=== PATIENT | female | born 1990 | race Caucasian/White ===

== ENCOUNTER 2025-02-08 01:57 | Inpatient (IN) | payer OTHER ==
[2025-02-08] VITALS (12 sets, daily range): BP systolic 111–161; BP diastolic 67–79; PULSE 56–107; RESP 12–20; TEMP 98–98.4; O2SAT 90–98
[~2025-02-08] VITALS: Ht 165.1 cm; Wt 88.0 kg
--- NOTE | 2025-02-08 02:58 | ED.PDOC ---
History of Present Illness HPI Comments 34-year-old female JESSIE presents with a chief complaint of RUQ abdominal pain that radiates to the side and back with N/V for the past 2 hours. BP: 83/52. Denies any PMHx. 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 Past Medical History PAST MEDICAL HISTORY: Denies Surgical History: Denies all surgeries INVAS TECH History: Denies all INVAS TECH Hx Family History Family History: Reviewed,noncontributory to illness Social History Smoker: Non-Smoker Alcohol: Denies ETOH Use Drugs: Denies Drug Use Lives In: Home Constitutional: denies: chills, diaphoresis, fatigue, fever, malaise, sweats, weakness, others EENTM: denies: blurred vision, double vision, ear bleeding, ear discharge, ear drainage, ear pain, ear ringing, eye pain, eye redness, hearing loss, mouth pain, mouth swelling, nasal discharge, nose bleeding, nose congestion, nose pain, photophobia, tearing, throat pain, throat swelling, voice changes, others Respiratory: denies: cough, hemoptysis, orthopnea, SOB at rest, shortness of breath, SOB with excertion, stridor, wheezing, others Cardiovascular: denies: chest pain, dizzy spells, diaphoresis, Dyspnea on exertion, edema, irregular heart beat, left arm pain, lightheadedness, palpitations, PND, syncope, others Gastrointestinal: reports: abdominal pain, nausea, vomiting; denies: abdomen distended, blood streaked bowels, constipated, diarrhea, dysphagia, difficulty swallowing, hematemesis, melena, poor appetite, poor fluid intake, rectal bleeding, rectal pain, others Genitourinary: denies: abnormal vagina bleeding, burning, dyspareunia, dysuria, flank pain, frequency, hematuria, incontinence, pain, , vagina discharge, urgency, others Neurological: denies: dizziness, fainting, headache, left sided numbness, left sided weakness, numbness, paresthesia, pre-existing deficit, right sided numbness, right sided weakness, seizure, speech problems, tingling, tremors, weakness, others Musculoskeletal: denies: back pain, gout, joint pain, joint swelling, muscle pain, muscle stiffness, neck pain, others Integumetry: denies: bruises, change in color, change in hair/nails, dryness, laceration, lesions, lumps, rash, wounds, others Allergic/Immunocompromised: denies: Difficulty Healing, Frequent Infections, Hives, Itching, others Hematologic/Lymphatic: denies: anemia, blood clots, easy bleeding, easy bruising, swollen glands, others Endocrine: denies: excessive hunger, excessive sweating, excessive thirst, excessive urination, flushing, intolerance to cold, intolerance to heat, unexplained weight gain, unexplained weight loss, others Psychiatric: denies: anxiety, bipolar disorder, depression, hopeless, panic disorder, schizophrenia, sleepless, suicidal, others All Other Systems: Reviewed and Negative Physical Exam General Appearance: No Apparent Distress, Normal HEENT: Normal ENT Inspection, Pharynx Normal, TMs Normal Neck: Full Range of Motion, Non-Tender, Normal, Normal Inspection Respiratory: Chest Non-Tender, Lungs Clear, No Accessory Muscle Use, No Respiratory Distress, Normal Breath Sounds Cardiovascular: No Edema, No JVD, No Murmur, No Gallop, Normal Peripheral Pulses, Regular Rate/Rhythm Breast Exam: Deferred Gastrointestinal: No Organomegaly, No Pulsatile Mass, Normal Bowel Sounds, RUQ, Soft, Tenderness Genitalia: Deferred Pelvic: Deferred Rectal: Deferred Extremities: No calf tenderness, Normal capillary refill, Normal inspection, Normal range of motion, Non-tender, No pedal edema Musculoskeletal : Apperance: Normal 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 Was a procedure done?: No Differential Dx Considerations may include: Cholecystitis, diverticulitis, pancreatitis, acute appendicitis, gastroenteritis X-Ray, Labs, Meds, VS Vital Signs Date Time Temp Pulse Resp B/P (MAP) Pulse Ox O2 Delivery O2 Flow Rate FiO2 02/08/25 02:35 98.6 56 10 106/59 (75) 96 98.6 02/08/25 02:35 56 12 97 Room Air* 0 21 02/08/25 02:08 98.6 84 16 83/52 (62) 96 98.6 Lab Test 02/08/25 02:57 Range/Units White Blood Count 13.2 H 4.4-10.8 10^3/uL Red Blood Count 4.48 4.0-5.20 10^6/uL Hemoglobin 11.2 L 12.2-16.2 g/dL Hematocrit 34.0 L 36.0-46.0 % Mean Corpuscular Volume 75.8 L 80.0-100.0 fL Mean Corpuscular Hemoglobin 25.0 L 28.0-32.0 pg Mean Corpuscular Hemoglobin Concent 32.9 32.0-36.0 g/dL Red Cell Distribution Width 15.7 H 11.8-14.3 % Platelet Count 354 140-450 10^3/uL Mean Platelet Volume 8.0 6.9-10.8 fL Neutrophils (%) (Auto) 81.7 H 37.0-80.0 % Lymphocytes (%) (Auto) 14.0 10.0-50.0 % Monocytes (%) (Auto) 3.5 0.0-12.0 % Eosinophils (%) (Auto) 0.6 0.0-7.0 % Basophils (%) (Auto) 0.2 0.0-2.0 % Neutrophils # (Auto) 10.8 H 1.6-8.6 10 ^3/uL Lymphocytes # (Auto) 1.8 0.4-5.4 10 ^3/uL Monocytes # (Auto) 0.5 0-1.3 10 ^3/uL Eosinophils # (Auto) 0.1 0-0.8 10 ^3/uL Basophils # (Auto) 0 0-0.2 10 ^3/uL Nucleated Red Blood Cells 0.0 % Sodium Level 140 136-145 mmol/L Potassium Level 4.3 3.5-5.1 mmol/L Chloride Level 107 98-107 mmol/L Carbon Dioxide Level 26 20-31 mmol/L Anion Gap 7 5-15 Blood Urea Nitrogen 14 9-23 mg/dL Creatinine 0.82 0.550-1.02 mg/dL Glomerular Filtration Rate Calc 96 >90 mL/min BUN/Creatinine Ratio 17.1 10.0-20.0 Serum Glucose 142 H 74-106 mg/dL Lactic Acid Level 1.8 0.4-2.0 mmol/L Calcium Level 9.1 8.7-10.4 mg/dL Total Bilirubin 0.2 0.2-1.0 mg/dL Aspartate Amino Transferase (AST) 53 H 13-40 U/L Alanine Aminotransferase (ALT) 40 7-40 U/L Alkaline Phosphatase 77 46-116 U/L Total Protein 7.3 5.7-8.2 g/dL Albumin 4.1 3.2-4.8 g/dL Lipase 306 H 12-53 U/L Time of 1ST Reevaluation: 03:17 Reevaluation 1ST: Unchanged Patient Education/Counseling: Diagnosis, Treatment Family Education/Counseling: No Family Present Departure 1 Departure Time of Disposition: 04:25 (Patient presented with abdominal pain that was concerning for possible appendicits, gastritis, cholecystitis, colitis, gastroenteritis, sbo, or orther possible surgical emergency. Data: 1. I ordered and reviewed the result of at least 3 labs including a CBC, BMP, and Urinalysis. 2. I independently interpreted the following tests: CT Abdoment and Pelvis is co ncerning for benign abdomen .Risk:This patient has a high risk of morbidity due to further diagnostic testing or treatment and may suffer from an acute abdominal process disorder. Workup reveals pancreatitis and patient should be admitted for further workup. and possible expert consultation. ) Impression: Primary Impression: Acute pancreatitis Qualified Codes: K85.90 - Acute pancreatitis without necrosis or infection, unspecified Additional Impression: Intractable abdominal pain Disposition: ADMITTED INPATIENT Admit to: Med Surg Condition: Serious Critical Care Note Critical Care Time?: Yes Critical care comment: Intractable abdominal pain Authorized and Performed by: Alexa Ch MD Total critical care time: Approximately 37 minutes Due to a high probability of clinically significant, life threatening deterioration, the patient required my highest level of preparedness to intervene emergently and I personally spent this critical care time directly and personally managing the patient. This critical care time included obtaining a history; examining the patient; pulse oximetry; ordering and review of studies; arranging urgent treatment with development of a management plan; evaluation of patient's response to treatment; frequent reassessment; and, discussions with other providers. This critical care time was performed to assess and manage the high probability of imminent, life-threatening deterioration that could result in multi-organ failure. It was exclusive of separately billable procedures and treating other patients and teaching time. Please see my other sections and the rest of the note for further information on patient assessment and treatment. Stability Stability form required: No Heart Score Heart Score: Heart Score Response (Comments) Value History N/A 0 EKG N/A 0 Age N/A 0 Risk Factors N/A 0 Troponin N/A 0 Total 0 I personally scribed for ALEXA CH MD ([email or web address]) on 02/08/25 at 02:58. Electronically submitted by Gerson Hackett ([email or web address]). ALEXA CH MD Feb 08, 2025 02:58
[2025-02-08 03:20] LABS: Basophils # (auto) 0 10 ^3/uL (0-0.2); Basophils % (auto) 0.2 % (0.0-2.0); Eosinophils # (auto) 0.1 10 ^3/uL (0-0.8); Hemoglobin 11.2 g/dL (12.2-16.2); Lymphocytes # (auto) 1.8 10 ^3/uL (0.4-5.4); Monocytes # (auto) 0.5 10 ^3/uL (0-1.3); Monocytes % (auto) 3.5 % (0.0-12.0)
[2025-02-08 03:21] LABS: Eosinophils % (auto) 0.6 % (0.0-7.0); Mean Corpuscular Hgb Conc. 32.9 g/dL (32.0-36.0); Mean Corpuscular Volume 75.8 fL (80.0-100.0); Neutrophils # (auto) 10.8 10 ^3/uL (1.6-8.6); Neutrophils % (auto) 81.7 % (37.0-80.0); Platelet Count (auto) 354 10^3/uL (140-450); Red Blood Cells 4.48 10^6/uL (4.0-5.20); Red Cell Distribution Width 15.7 % (11.8-14.3); White Blood Cell 13.2 10^3/uL (4.4-10.8)
[2025-02-08 03:29] LABS: Alanine Aminotransferase 40 U/L (7-40); Albumin 4.1 g/dL (3.2-4.8); Alkaline Phosphatase 77 U/L (46-116); Anion Gap 7 (5-15); BUN/Creatinine Ratio 17.1 (10.0-20.0); Blood Urea Nitrogen 14 mg/dL (9-23); Calcium 9.1 mg/dL (8.7-10.4); Carbon Dioxide 26 mmol/L (20-31); Chloride 107 mmol/L (98-107); Potassium 4.3 mmol/L (3.5-5.1); Sodium 140 mmol/L (136-145); Total Protein 7.3 g/dL (5.7-8.2)
[2025-02-08] MEDS: IOHEXOL 300 MG/ML 100ML BOTTLE IJ ONE (03:35)
[2025-02-08 03:49] LABS: Aspartate Aminotransferase 53 U/L (13-40); Bilirubin, Total 0.2 mg/dL (0.2-1.0); Glucose 142 mg/dL (74-106); Lipase 306 U/L (12-53)
--- NOTE | 2025-02-08 04:21 | DVH ---
Exam: CT CT AB PEL WITH IV CON ONLY History: RUQ abdominal pain Comparison Study: None available at time of dictation. TECHNIQUE: Multidetector CT of the abdomen and pelvis was performed from lung bases to ischial tubero sities. Imaging was performed without IV contrast using axial images. Coronal and sagittal reformats were obtained from the axial data set by the technologist. Radiation Dose Information: CT Dose: CTDI volume is 21.5 mGy. Dose-length product is 1387.6 mGy*cm FINDINGS: Evaluation of solid organs is limited due to lack of intravenous contrast use. Findings: Lung Bases: No acute or significant lung base finding. Normal heart size. No pleural or pericardial effusion. Liver: The liver is normal in size. No focal lesions. Gallbladder and Biliary Tree: Unremarkable Spleen: Unremarkable Pancreas: The pancreas is grossly normal in appearance. Adrenal Glands: Unremarkable Kidneys: Kidneys are grossly normal without calculi or hydronephrosis. GI Tract: The stomach is grossly normal in appearance. Small bowel and colon are normal in caliber an d distribution. The appendix is not visualized; however, no secondary findings of acute appendicitis identified. Peritoneal cavity: No pneumoperitoneum. No ascites. Lymphadenopathy: No mesenteric, retroperitoneal or periportal lymphadenopathy. Abdominal Wall and Mesentery: Unremarkable. Vasculature: The visualized abdominal aorta is normal in size and caliber. Evaluation of abdominal a nd pelvic vessels is limited due to lack of intravenous contrast. Pelvic Organs: Unremarkable Urinary Bladder: Grossly unremarkable for degree of distention. Musculoskeletal: No aggressive focal bony lesions, acute fractures or dislocation. Soft tissues: Unremarkable IMPRESSION: 1. No acute abdominal or pelvic finding. Radiation optimization: All CT scans at this facility use at least one of these dose optimization zach hniques: automated exposure control mA and/or kV adjustment per patient size (includes targeted exam s where dose is matched to clinical indication) or iterative reconstruction.
[2025-02-08 04:36] LABS: Urine Bacteria FEW /hpf (None Seen); Urine Blood 1+ /uL (Negative); Urine Clarity Clear (Clear); Urine Color Light-Yellow (Yellow); Urine Protein, UAD TRACE (Negative); Urine Specific Gravity > 1.050 (1.001-1.035); Urine Squamous Epithelial Cell FEW /hpf (<5); Urine Urobilinogen Normal (Negative); Urine WBC 2 /HPF (0-5)
--- NOTE | 2025-02-08 04:57 | DVHHPRES ---
History of Present Illness Resident Creating Document: PAM GAN History of Present Illness Vivi Ge this is a 34-year-old female patient who presents to the ED with chief complaint of epigastric abdominal pain which radiates towards right upper quadrant and towards back, intensity 10/10 which lasted approximately 1 hour associated with nausea and vomiting, followed by episodes of loss of consciousness which lasted approximately 1 hour, she was foggy and confused and presented bilateral arm tremors and diaphoresis. Per patient these symptoms have been happening for the past two months, she had a total of three episodes but never consulted until today after calling the EMS. Denies palpitation, chest pain, dyspnea, diarrhea, constipation, dysuria, bleeding, recent travel, sick contacts, triggering factors, unintentional weight loss and motor or sensory deficits. 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 control consist of vasectomy in her and bilateral fallopian tube resection. Last menstrual period was on February 01, 2025, she just finished her period, her cycles normally last 28 days. Family history: Denies Social history: Lives with family in [place] ( is next of kin). Denies current tobacco, alcohol and other drug abuse Allergies: Denies Home medication: Denies Patient seen and examined at bedside. Currently has no new complaint. She is alert and oriented in four spheres. Presented pain while palpating right upper quadrant (positive Thompson's sign). Past Medical History Per HPI Past Surgical History Per HPI Family History Per HPI Past Social History Per HPI Review of Systems Review of Systems Per HPI Allergies: Coded Allergies: NO KNOWN ALLERGIES (Unverified , 02/08/25) Exam Vital Signs Vital Signs Date Time Temp Pulse Resp B/P (MAP) Pulse Ox O2 Delivery O2 Flow Rate FiO2 02/08/25 02:35 98.6 56 10 106/59 (75) 96 98.6 02/08/25 02:35 Room Air* 0 21 Exam Patient lying in bed, in no acute distress General: Lucid, afebrile, mucosae are moist Cardiovascular: Normal S1 and S2. No murmurs, gallops or rubs Respiratory: Normal ventilation mechanics. Clear lung sounds on auscultation Abdomen: Soft, positive Thompson's sign, rest of abdomen nontender, no organomegaly, normal bowel sounds MSK/skin: Mobilizes 4 limbs. Skin is dry and warm Neurological: Oriented in 3 spheres. No motor no sensitive deficits. Pupils are isocoric and reactive Labs/Xrays Labs Test 02/08/25 04:20 02/08/25 02:57 Range/Units Urine Color Light-yellow Yellow Urine Clarity Clear Clear Urine pH 8.0 5.0-9.0 Urine Specific [place] > 1.050 H 1.001-1.035 Urine Protein Trace H Negative Urine Ketones Negative Negative Urine Blood 1+ H Negative /uL Urine Nitrite Negative Negative Urine Bilirubin Negative Negative Urine Urobilinogen Normal Negative mg/dL Urine Leukocyte Esterase Negative Negative /uL Urine RBC 4 0 - 4 /hpf Urine Microscopic WBC 2 0-5 /HPF Urine Squamous Epithelial Cells Few <5 /hpf Urine Bacteria Few H None Seen /hpf Urine Glucose Normal Normal mg/dL White Blood Count 13.2 H 4.4-10.8 10^3/uL Red Blood Count 4.48 4.0-5.20 10^6/uL Hemoglobin 11.2 L 12.2-16.2 g/dL Hematocrit 34.0 L 36.0-46.0 % Mean Corpuscular Volume 75.8 L 80.0-100.0 fL Mean Corpuscular Hemoglobin 25.0 L 28.0-32.0 pg Mean Corpuscular Hemoglobin Concent 32.9 32.0-36.0 g/dL Red Cell Distribution Width 15.7 H 11.8-14.3 % Platelet Count 354 140-450 10^3/uL Mean Platelet Volume 8.0 6.9-10.8 fL Neutrophils (%) (Auto) 81.7 H 37.0-80.0 % Lymphocytes (%) (Auto) 14.0 10.0-50.0 % Monocytes (%) (Auto) 3.5 0.0-12.0 % Eosinophils (%) (Auto) 0.6 0.0-7.0 % Basophils (%) (Auto) 0.2 0.0-2.0 % Neutrophils # (Auto) 10.8 H 1.6-8.6 10 ^3/uL Lymphocytes # (Auto) 1.8 0.4-5.4 10 ^3/uL Monocytes # (Auto) 0.5 0-1.3 10 ^3/uL Eosinophils # (Auto) 0.1 0-0.8 10 ^3/uL Basophils # (Auto) 0 0-0.2 10 ^3/uL Nucleated Red Blood Cells 0.0 % Sodium Level 140 136-145 mmol/L Potassium Level 4.3 3.5-5.1 mmol/L Chloride Level 107 98-107 mmol/L Carbon Dioxide Level 26 20-31 mmol/L Anion Gap 7 5-15 Blood Urea Nitrogen 14 9-23 mg/dL Creatinine 0.82 0.550-1.02 mg/dL Glomerular Filtration Rate Calc 96 >90 mL/min BUN/Creatinine Ratio 17.1 10.0-20.0 Serum Glucose 142 H 74-106 mg/dL Lactic Acid Level 1.8 0.4-2.0 mmol/L Calcium Level 9.1 8.7-10.4 mg/dL Total Bilirubin 0.2 0.2-1.0 mg/dL Aspartate Amino Transferase (AST) 53 H 13-40 U/L Alanine Aminotransferase (ALT) 40 7-40 U/L Alkaline Phosphatase 77 46-116 U/L Total Protein 7.3 5.7-8.2 g/dL Albumin 4.1 3.2-4.8 g/dL Lipase 306 H 12-53 U/L Assessment/Plan Assessment/Plan Assessment: Sepsis probably secondary to pancreatitis versus cholecystitis Pancreatitis Rule out cholecystitis Questionable UTI Rule out syncope versus seizure disorder Plan: Obtain abdomen and pelvis CT which showed no intra abdominal abnormalities. Due to positive Thompson's sign on examination, ordered abdominal ultrasound. Increased lipase (306). Recommend bowel rest, and IV fluids at this point. Currently under empiric IV antibiotic (ceftriaxone and metronidazole). Covering probable UTI and questionable cholecystitis. Complete workup for syncope versus seizure disorder. Ordered head CT, echocardiogram, carotid duplex and orthostatic vital signs. Ordered panculture (blood and urine culture) Consulted Neurology Goals of care discussed with patient for over 18 minutes: Full code status Discussed plan with Dr. Tipton, patient and nurses: Currently on bowel rest (NPO), IV fluids, empiric IV antibiotic. Ordered complementary workup to rule out cholecystitis, syncope and seizure disorder. Plan discussed with: Patient, Daughter, Other (Nurses) Date of Service: Feb 08, 2025 Billing Provider: MURALI TIPTON MD Common Visit Codes: [id number]-[id number] INP/OBS CARE (HIGH) PAM GAN RESIDENT Feb 08, 2025 04:57
[2025-02-08] MEDS: PANTOPRAZOLE 40 MG/10 ML VIAL INJ IV ONE (05:00)
[2025-02-08] MEDS ORDERED: MORPHINE SULFATE INJ 2 MG/ml SYRG IV PRN (05:00)
[2025-02-08] MEDS ORDERED: ONDANSETRON HCL 4 MG/2 ML VIAL IV PRN (05:00)
[2025-02-08] MEDS: SODIUM CHLORIDE 0.9% 1,000 ML IV ONE ×2 (05:00)
[2025-02-08 05:43] LABS: Amphetamine Screen, Urine Neg (NEGATIVE); Barbiturate Scree,Urine Neg (NEGATIVE); Benzodiazephine Screen, Urine Neg (NEGATIVE); Cannabinoid Screen, Urine Neg (NEGATIVE); Cocaine Screen, Urine Neg (NEGATIVE); Opiate Scree,Urine Neg (NEGATIVE); Phencyclidine Screen, Urine Neg (NEGATIVE)
[2025-02-08 05:51] LABS: INR 0.97 (0.9-1.15); Partial Thromboplastin Time 24.2 SEC (24.5-34.5); Prothrombin Time 10.3 sec (9.3-11.8)
[2025-02-08] MEDS: SODIUM CHLORIDE 0.9% 1,000 ML IV SCH ×2 (06:00→16:21)
[2025-02-08 06:04] LABS: Magnesium 1.9 mg/dL (1.6-2.6)
[2025-02-08 06:06] LABS: Phosphorus 4.1 mg/dL (2.4-5.1)
--- NOTE | 2025-02-08 06:15 | DVH ---
EXAM: CT HEAD WITHOUT CONTRAST INDICATION: Questionable seizures TECHNIQUE: CT of the head without intravenous contrast. Coronal and sagittal reformatted images are s ubmitted. Radiation Dose : 1. Head: CT Dose: CTDI volume is 57.22 mGy. Dose-length product is 802.73 mGy*cm The dose indicators for CT are the volume Computed Tomography (CT) Dose Index (CTDIvol) and the Dose Length Product (DLP), and are measured in units of mGy and mGy-cm, respectively. These indicators are not patient dose, but values generated from the CT scanner acquisition factors. The report includes radiation exposure data for exposures received during this examination. All CT scans at this medical facility are performed using dose modulation techniques as appropriate to a performed exam including the following: Automated exposure control was utilized; adjustment of the MA and/or KV according to patient size; and use of iterative reconstruction technique. COMPARISON: None FINDINGS: There is no evidence of acute intracranial hemorrhage, extra-axial collection, mass effect, midline s hift, herniation or hydrocephalus. The ventricles, sulci and cisterns are age appropriate. The rene-white differentiation is intact. Opacification of the ethmoid air cells. Mastoid air cells are clear. No depressed calvarial fracture. The surrounding soft tissues are unremarkable. IMPRESSION: 1. No acute intracranial abnormality.
[2025-02-08] MEDS: cefTRIAXone 1GM/50ML D5W 50 ML IV ONE (08:38)
[2025-02-08 08:44] LABS: Basophils # (auto) 0 10 ^3/uL (0-0.2); Basophils % (auto) 0.3 % (0.0-2.0); Eosinophils # (auto) 0 10 ^3/uL (0-0.8); Hemoglobin 11.4 g/dL (12.2-16.2); Mean Corpuscular Hemoglobin 24.9 pg (28.0-32.0); Monocytes # (auto) 0.4 10 ^3/uL (0-1.3); White Blood Cell 9.2 10^3/uL (4.4-10.8)
[2025-02-08 08:46] LABS: Eosinophils % (auto) 0.2 % (0.0-7.0); Hematocrit 34.8 % (36.0-46.0); Lymphocytes # (auto) 1.7 10 ^3/uL (0.4-5.4); Lymphocytes % (auto) 18.9 % (10.0-50.0); Mean Corpuscular Hgb Conc. 32.8 g/dL (32.0-36.0); Mean Corpuscular Volume 75.7 fL (80.0-100.0); Monocytes % (auto) 4.6 % (0.0-12.0); Nucleated Red Blood Cells % 0.1 %; Platelet Count (auto) 367 10^3/uL (140-450); Red Cell Distribution Width 16.5 % (11.8-14.3)
[2025-02-08] MEDS: ONDANSETRON HCL 4 MG/2 ML VIAL IV ONE (08:48)
[2025-02-08] MEDS: MORPHINE SULFATE 4 MG/ML SYR/VIAL IV ONE (08:48)
--- NOTE | 2025-02-08 08:58 | DVH ---
INDICATION: Rule out cholecystitis TECHNIQUE: Multiple real-time sonographic images of the abdomen were obtained. COMPARISON: None FINDINGS: The liver is heterogenous in echogenicity. The liver measures 16cm. No intrahepatic biliar y ductal dilatation is noted. The gallbladder wall measures 0.3 cm and is unremarkable. Gallstones are noted. The common duct faby ures 0.6 cm and is unremarkable. No pericholecystic fluid is noted. The right kidney measures 12cm. No hydronephrosis. The pancreas is not well visualized due to obscuration from bowel gas. The visualized portions of the IVC and aorta are grossly unremarkable. IMPRESSION: Hepatic steatosis. Cholelithiasis.
--- NOTE | 2025-02-08 08:59 | DVH ---
Carotid Duplex Date: 02/08/2025 07:41 AM Clinical History: Loss of consciousness Comparison: None Technique: Duplex Doppler evaluation of the extracranial carotid and vertebral arteries including col or Doppler and spectral/pulsed waveform analysis was performed. Findings: RIGHT SIDE: The peak systolic velocities are 95 cm/s in the distal CCA and 87 cm/s in the proximal ICA.The ICA/CC A ratio is 0.9. The external carotid artery is patent with peak systolic velocity of 89 cm/s proximally. There is appropriate antegrade flow in the right vertebral artery. LEFT SIDE: The peak systolic velocities are 101 cm/s in the distal CCA and 55cm/s in the proximal ICA. The ICA /CCA ratio is 0.5. The external carotid artery is patent with peak systolic velocity of 89 cm/s proximally. There is appropriate antegrade flow in the left vertebral artery. IMPRESSION: No hemodynamically significant stenosis noted in the right carotid system. No hemodynamically significant stenosis noted in the left carotid system. Reference: Radiology 2003; 229:[id number]
[2025-02-08 09:06] LABS: Albumin 3.9 g/dL (3.2-4.8); Alkaline Phosphatase 83 U/L (46-116); Anion Gap 5 (5-15); BUN/Creatinine Ratio 13.6 (10.0-20.0); Bilirubin, Total 0.3 mg/dL (0.2-1.0); Calcium 9.1 mg/dL (8.7-10.4); Carbon Dioxide 25 mmol/L (20-31); Glucose 90 mg/dL (74-106); Potassium 4.4 mmol/L (3.5-5.1); Sodium 140 mmol/L (136-145); Total Protein 7.3 g/dL (5.7-8.2)
[2025-02-08] MEDS: metroNIDAZOLE 500MG/100ML 100 ML IV ONE (09:07)
--- NOTE | 2025-02-08 09:07 | DVH ---
CHEST RADIOGRAPH Indication: PNA Technique: Single frontal view of the chest was obtained Comparison: None FINDINGS: Lines and Tubes: None Lungs: No focal consolidation. Pleura: No effusion. No pneumothorax. Cardiomediastinal contours: Unremarkable Bones: No acute osseous abnormality. IMPRESSION: No acute cardiopulmonary disease.
[2025-02-08 09:12] LABS: Alanine Aminotransferase 285 U/L (7-40); Aspartate Aminotransferase 378 U/L (13-40); Blood Urea Nitrogen 9 mg/dL (9-23); Chloride 110 mmol/L (98-107)
--- NOTE | 2025-02-08 09:24 | DVHINCON2 ---
Date of service: Feb 08, [address] Yin Reason for Consultation Questionable seizure History of Present Illness Ms. 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 On waking up, she failed confused, but she knew it was a hospital bleeding, and what was happened to her About two weeks ago, one day she remember having intense abdominal pain, but the next memory was waking up having shower, feeling confused, but she knew where she was. Two days after this event, when she was having intense abdominal pain, remember in the bathroom but next memory was in the bed with her with confusion but she recognized person, place and she knew what happened to her on waking up She denies history of seizure disorder, she denies symptoms olfactory hallucination, Barbara vu, she was no history of traumatic brain injury, intracr anial infection, or family history of seizure disorder She has consulted her family doctor I have asked her abdominal pain, but no diagnosis was given UDS, 01/22/2025, negative Plasma alcohol, 02/08/25: 3.4 UDS, 02/08/2025: WBC: 2, urine leukocyte esterase: Negative WBC/HB/PLT/MCV, 02/08/2025: 9.2/11.4/367/75.7 BMP, 02/08/2025: Unremarkable TBI/AST/ALT/AP, 02/08/2025: 0.2/53/40/77, 0.3/378/285/83 Ammonia, 02/08/2025: 36 TG/HDL/LDL/HDL, 02/08/2025: 103/150/105/46 Vitamin B12, 02/08/2025: 612 TSH, 02/08/25: 1.38 Ultrasound, 02/08/2025: Hepatic steatosis. Carotid Doppler, 02/08/2025: No hemodynamically significant stenosis noted in the right carotid system. No hemodynamically significant stenosis noted in the left carotid system CT head, 02/08/2025: No acute intracranial abnormality. Past Medical History No major medical problems Past Surgical History Tubal ligation Family History Diabetes Social History She is not a tobacco smoker, she has no history of alcohol or recreational substance abuse Allergies: Coded Allergies: NO KNOWN ALLERGIES (Unverified , 02/08/25) Current Medications Current Medications Medications (Trade) Dose Ordered Sig/Clifford Route PRN Reason Start Time Stop Time Status Last Admin Acetaminophen (Tylenol Tablet) 650 mg Q6HP PRN PO PAIN SCALE 1-3 OR TEMP>100.4 02/08/25 05:00 Ondansetron HCl (Zofran) 4 mg Q4HP PRN IV NAUSEA / VOMITING 02/08/25 05:00 Morphine Sulfate 2 mg Q4HPRN PRN IV SEVERE PAIN (7-10 PAIN SCALE) 02/08/25 05:00 Enoxaparin Sodium (Lovenox) 40 mg DAILY SC 02/08/25 10:00 Sodium Chloride 1,000 ml @ 100 mls/hr Q10H IV 02/08/25 05:00 02/08/25 06:00 Pantoprazole Sodium (Protonix) 40 mg DAILY IV 02/08/25 10:00 Metronidazole 100 ml @ 100 mls/hr Q8HR IV 02/08/25 14:00 Ceftriaxone Sodium 50 ml @ 100 mls/hr DAILY@09 IV 02/09/25 09:00 Review of Systems As above, the other systems are negative Vital Signs Vital Signs Date Time Temp Pulse Resp B/P (MAP) Pulse Ox O2 Delivery O2 Flow Rate FiO2 02/08/25 08:19 98.2 64 17 105/71 (82) 98 98.2 02/08/25 08:00 Room Air* 0 21 Physical Exam GENERAL EXAM: General: the patient is well developed and nourished. No acute distress. HEENT: Normocephalic, neck is supple, no carotid bruits. No mass. RESPIRATORY: Normal respiratory effort with symmetrical lung expansion. Lungs clear to auscultation. CARDIOVASCULAR: Regular rate and rhythm with no murmurs. S1, S2. ABDOMEN: Soft, nontender, normal bowel sound NEUROLOGICAL: MENTAL STATUS: Awake and alert. Oriented to person, place, time and general circumstances. Able to give personal history. SPEECH, LANGUAGE, HIGHER CORTICAL FUNCTION: no aphasia or dysathria. CRANIAL NERVES: #2: Intact visual guerra to confrontation. The optic discs were sharp. #3,4,6: Pupils are equal, round and reactive. EOMs full and conjugate. No nystagmus. #5: Facial sensation intact in all three divisions bilaterally. Mandibular strength intact. #7: Facial muscles symmetrical and strength intact. #8: Hearing grossly normal to voice. #9,10: Uvula and soft palate rise in the midline. Swallow and voice are normal. #11: Trapezius and sternomastoid strength intact bilaterally. #12: Tongue midline. No fasciculations or atrophy. SENSATION: Sensation to touch and pinprick is normal. MOTOR: Normal tone in the upper and lower extremity. Normal muscle bulk. No fasciculations. No abnormal movements or posturing. Muscle strength of the major groups in the upper extremities is 5/5. Muscle strength of the major groups in the lower extremities is 5/5. REFLEXES: Deep tendon reflexes normal and symmetrical. No pathological reflexes. CEREBELLAR/COORDINATION: Finger to nose and heel to tovar are normal bilaterally. GAIT/STATION: deferred. Labs/Diagnostic Data Labs Test 02/08/25 08:31 02/08/25 05:20 02/08/25 04:20 02/08/25 02:57 Range/Units White Blood Count 9.2 # 4.4-10.8 10^3/uL Red Blood Count 4.60 4.0-5.20 10^6/uL Hemoglobin 11.4 L 12.2-16.2 g/dL Hematocrit 34.8 L 36.0-46.0 % Mean Corpuscular Volume 75.7 L 80.0-100.0 fL Mean Corpuscular Hemoglobin 24.9 L 28.0-32.0 pg Mean Corpuscular Hemoglobin Concent 32.8 32.0-36.0 g/dL Red Cell Distribution Width 16.5 H 11.8-14.3 % Platelet Count 367 140-450 10^3/uL Mean Platelet Volume 8.0 6.9-10.8 fL Neutrophils (%) (Auto) 76.0 37.0-80.0 % Lymphocytes (%) (Auto) 18.9 10.0-50.0 % Monocytes (%) (Auto) 4.6 0.0-12.0 % Eosinophils (%) (Auto) 0.2 0.0-7.0 % Basophils (%) (Auto) 0.3 0.0-2.0 % Neutrophils # (Auto) 7.0 1.6-8.6 10 ^3/uL Lymphocytes # (Auto) 1.7 0.4-5.4 10 ^3/uL Monocytes # (Auto) 0.4 0-1.3 10 ^3/uL Eosinophils # (Auto) 0 0-0.8 10 ^3/uL Basophils # (Auto) 0 0-0.2 10 ^3/uL Nucleated Red Blood Cells 0.1 % Sodium Level 140 136-145 mmol/L Potassium Level 4.4 3.5-5.1 mmol/L Chloride Level 110 H 98-107 mmol/L Carbon Dioxide Level 25 20-31 mmol/L Anion Gap 5 5-15 Blood Urea Nitrogen 9 9-23 mg/dL Creatinine 0.66 0.550-1.02 mg/dL Glomerular Filtration Rate Calc 118 >90 mL/min BUN/Creatinine Ratio 13.6 10.0-20.0 Serum Glucose 90 74-106 mg/dL Calcium Level 9.1 8.7-10.4 mg/dL Magnesium Level 2.0 1.6-2.6 mg/dL Total Bilirubin 0.3 0.2-1.0 mg/dL Aspartate Amino Transferase (AST) 378 H 13-40 U/L Alanine Aminotransferase (ALT) 285 H 7-40 U/L Alkaline Phosphatase 83 46-116 U/L Total Protein 7.3 5.7-8.2 g/dL Albumin 3.9 3.2-4.8 g/dL Ammonia 36 H 11-32 umol/L Urine Color Light-yellow Yellow Urine Clarity Clear Clear Urine pH 8.0 5.0-9.0 Urine Specific [place] > 1.050 H 1.001-1.035 Urine Protein Trace H Negative Urine Ketones Negative Negative Urine Blood 1+ H Negative /uL Urine Nitrite Negative Negative Urine Bilirubin Negative Negative Urine Urobilinogen Normal Negative mg/dL Urine Leukocyte Esterase Negative Negative /uL Urine RBC 4 0 - 4 /hpf Urine Microscopic WBC 2 0-5 /HPF Urine Squamous Epithelial Cells Few <5 /hpf Urine Bacteria Few H None Seen /hpf Urine Glucose Normal Normal mg/dL Urine Test Negative Negative Urine Opiates Screen Neg NEGATIVE Urine Fentanyl Screen Neg NEGATIVE Urine Barbiturates Screen Neg NEGATIVE Urine Phencyclidine Screen Neg NEGATIVE Urine Amphetamines Screen Neg NEGATIVE Urine Benzodiazepines Screen Neg NEGATIVE Urine Cocaine Screen Neg NEGATIVE Urine Cannabinoids Screen Neg NEGATIVE Prothrombin Time 10.3 9.3-11.8 sec Prothrombin Time INR 0.97 0.9-1.15 Activated Partial Thromboplast Time 24.2 L 24.5-34.5 SEC Hemoglobin A1c 5.0 <5.7 % A1C Lactic Acid Level 1.8 0.4-2.0 mmol/L Phosphorus Level 4.1 2.4-5.1 mg/dL Triglycerides Level 103 < 150 mg/dL Cholesterol Level 160 < 200 mg/dL LDL Cholesterol 105 H < 100 mg/dL HDL Cholesterol 46 40-59 mg/dL Lipase 306 H 12-53 U/L Vitamin B12 Level 612 211-911 pg/mL Vitamin D 25-Hydroxy 28.6 L 30.0-100 ng/mL Thyroid Stimulating Hormone (TSH) 1.38 0.55-4.78 uIU/mL Plasma/Serum Blood Alcohol 3.4 <10 mg/dL Assessment Episodic amnesia along with intense abdominal pain, etiology unclear ? Partial complex seizure Abdominal pain Plan/Recommendation Monitoring Supportive treatment Telemetry EEG MR brain scan GI specially on case Balance her doctor on discharge Progress: Poor This medical document was created using an electronic medical record system with [employer] dictation system. Although this document has been carefully reviewed, there may still be some phonetic and typographical errors. These areas are purely typographical due to imperfections of the software programs, and do not reflect any compromise in the patient's medical care. Plan discussed with: Patient, Other JUDITH BUTLER MD Feb 08, 2025 09:23
[2025-02-08] MEDS ORDERED: LORazepam 2MG/ML-1ML VIAL IV PRN (11:00)
[2025-02-08] MEDS: ENOXAPARIN SOD 40 MG/0.4 ML SYRINGE SC SCH (11:16)
[2025-02-08] MEDS: PANTOPRAZOLE 40 MG/10 ML VIAL INJ IV SCH (11:16)
--- NOTE | 2025-02-08 12:39 | DVHINCON2 ---
GI Consult Consult Note GI consult note Date of Consultation: 02/08/2025 Chief Complaint: Abdominal pain Referring Physician: Dr. Whitaker H&P: 34-year-old female presented to ER with complains of epigastric abdominal pain that radiates to the right upper quadrant, started one day ago, pain has improved at this time. Patient also has loss of consciousness when the pain was really intense Patient had similar episode two months ago, did not come to the hospital at this time Patient has nausea and vomiting, mostly food and yellow bile. Denies hematemesis. No melena or red blood in stool Patient denies alcohol use. No history of hepatitis. Denies use of Tylenol. Occasionally uses Advil Past Medical History: Denies Past Surgical History: Denies Social History: NO smoking, drinking ETOH and use of illegal drugs. Family History: Noncontributory Review of Systems: Constitutional: no fever, chill, weight loss HEENT: no eye pain, no hearing loss, no oral lesion, no scleral icterus Heart: no chest pain, no chest pressure Lung: no cough, no dyspnea with exertion Abdomen: see HPI Physical exam: General: NAD, AAOX3 Chest: lung guerra clear to auscultation Heart: RRR, no murmur Abdomen: non-distended, moderate right upper quadrant tenderness to palpation, +BS Labs: Labs Test 02/08/25 08:31 02/08/25 05:20 02/08/25 04:20 02/08/25 02:57 Range/Units White Blood Count 9.2 # 4.4-10.8 10^3/uL Red Blood Count 4.60 4.0-5.20 10^6/uL Hemoglobin 11.4 L 12.2-16.2 g/dL Hematocrit 34.8 L 36.0-46.0 % Mean Corpuscular Volume 75.7 L 80.0-100.0 fL Mean Corpuscular Hemoglobin 24.9 L 28.0-32.0 pg Mean Corpuscular Hemoglobin Concent 32.8 32.0-36.0 g/dL Red Cell Distribution Width 16.5 H 11.8-14.3 % Platelet Count 367 140-450 10^3/uL Mean Platelet Volume 8.0 6.9-10.8 fL Neutrophils (%) (Auto) 76.0 37.0-80.0 % Lymphocytes (%) (Auto) 18.9 10.0-50.0 % Monocytes (%) (Auto) 4.6 0.0-12.0 % Eosinophils (%) (Auto) 0.2 0.0-7.0 % Basophils (%) (Auto) 0.3 0.0-2.0 % Neutrophils # (Auto) 7.0 1.6-8.6 10 ^3/uL Lymphocytes # (Auto) 1.7 0.4-5.4 10 ^3/uL Monocytes # (Auto) 0.4 0-1.3 10 ^3/uL Eosinophils # (Auto) 0 0-0.8 10 ^3/uL Basophils # (Auto) 0 0-0.2 10 ^3/uL Nucleated Red Blood Cells 0.1 % Sodium Level 140 136-145 mmol/L Potassium Level 4.4 3.5-5.1 mmol/L Chloride Level 110 H 98-107 mmol/L Carbon Dioxide Level 25 20-31 mmol/L Anion Gap 5 5-15 Blood Urea Nitrogen 9 9-23 mg/dL Creatinine 0.66 0.550-1.02 mg/dL Glomerular Filtration Rate Calc 118 >90 mL/min BUN/Creatinine Ratio 13.6 10.0-20.0 Serum Glucose 90 74-106 mg/dL Calcium Level 9.1 8.7-10.4 mg/dL Magnesium Level 2.0 1.6-2.6 mg/dL Total Bilirubin 0.3 0.2-1.0 mg/dL Aspartate Amino Transferase (AST) 378 H 13-40 U/L Alanine Aminotransferase (ALT) 285 H 7-40 U/L Alkaline Phosphatase 83 46-116 U/L Total Protein 7.3 5.7-8.2 g/dL Albumin 3.9 3.2-4.8 g/dL Ammonia 36 H 11-32 umol/L Urine Color Light-yellow Yellow Urine Clarity Clear Clear Urine pH 8.0 5.0-9.0 Urine Specific [place] > 1.050 H 1.001-1.035 Urine Protein Trace H Negative Urine Ketones Negative Negative Urine Blood 1+ H Negative /uL Urine Nitrite Negative Negative Urine Bilirubin Negative Negative Urine Urobilinogen Normal Negative mg/dL Urine Leukocyte Esterase Negative Negative /uL Urine RBC 4 0 - 4 /hpf Urine Microscopic WBC 2 0-5 /HPF Urine Squamous Epithelial Cells Few <5 /hpf Urine Bacteria Few H None Seen /hpf Urine Glucose Normal Normal mg/dL Urine Test Negative Negative Urine Opiates Screen Neg NEGATIVE Urine Fentanyl Screen Neg NEGATIVE Urine Barbiturates Screen Neg NEGATIVE Urine Phencyclidine Screen Neg NEGATIVE Urine Amphetamines Screen Neg NEGATIVE Urine Benzodiazepines Screen Neg NEGATIVE Urine Cocaine Screen Neg NEGATIVE Urine Cannabinoids Screen Neg NEGATIVE Prothrombin Time 10.3 9.3-11.8 sec Prothrombin Time INR 0.97 0.9-1.15 Activated Partial Thromboplast Time 24.2 L 24.5-34.5 SEC Hemoglobin A1c 5.0 <5.7 % A1C Lactic Acid Level 1.8 0.4-2.0 mmol/L Phosphorus Level 4.1 2.4-5.1 mg/dL Triglycerides Level 103 < 150 mg/dL Cholesterol Level 160 < 200 mg/dL LDL Cholesterol 105 H < 100 mg/dL HDL Cholesterol 46 40-59 mg/dL Lipase 306 H 12-53 U/L Vitamin B12 Level 612 211-911 pg/mL Vitamin D 25-Hydroxy 28.6 L 30.0-100 ng/mL Thyroid Stimulating Hormone (TSH) 1.38 0.55-4.78 uIU/mL Plasma/Serum Blood Alcohol 3.4 <10 mg/dL Imaging: CT abdomen pelvis IMPRESSION: 1. No acute abdominal or pelvic finding. Abdominal ultrasound IMPRESSION: Hepatic steatosis. Cholelithiasis. Assessment: Abdominal pain Cholelithiasis Hepatic steatosis Transaminitis Plan: Discussed with Dr. Teague Monitor labs surgical consult recommended We will continue to follow patient Thank you for this consult Date of Service: Feb 08, 2025 Billing Provider: SUSHIL MARIEE Common Visit Codes: CONSULT ONLY Consultation Codes: [id number] CONSULT <45MIN SUSHIL MARIEE Feb 08, 2025 12:39
[2025-02-08 12:40] LABS: Hepatitis B Surface Antibody Positive (Negative); Hepatitis B Surface Antigen Negative (Negative)
[2025-02-08 13:02] LABS: Hepatitis A Ab IgM Negative; Hepatitis B Core IgM Negative (Negative); Hepatitis C Antibody Negative (Negative)
--- NOTE | 2025-02-08 13:29 | DVH ---
PROCEDURE: MRI BRAIN HEAD WO CONTRAST INDICATION: Sz EXAM DATE: 02/08/2025 12:24 PM COMPARISON: None TECHNIQUE: MRI of the brain without intravenous contrast. FINDINGS: Diffusion weighted images of the brain demonstrate no evidence of acute infarction. There is no evidence of acute intracranial hemorrhage, extra-axial collection, mass effect, midline s hift, herniation or hydrocephalus. The ventricles, sulci and cisterns appear age appropriate. The signal intensities of the brain parenchyma are within normal limits. Mild atrophy of the right hippocampus. There are no signal abnormalities on the susceptibility weighted sequences. The major vascular flow voids are present. Severe pansinusitis. The surrounding soft tissues and osseous structures are unremarkable. IMPRESSION: 1. No evidence of acute infarction, intracranial hemorrhage, mass effect or hydrocephalus. 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 Clinical correlation an d continued follow-up is recommended. Severe pansinusitis. Consider further evaluation with CT of the sinuses. HS:Y
[2025-02-08] MEDS ORDERED: HYDROmorphone HCL 2 MG/ML VL/or syr ONE (13:53)
--- NOTE | 2025-02-08 13:53 | DVHINCON2 ---
Date of service: Feb 08, 2025 History of Present Illness 34-year-old otherwise healthy female complaining of recurrent epigastric and right upper quadrant abdominal pain associated with nausea that began yesterday. Patient had two previous similar episodes in the past. Past Medical History None Past Surgical History Tubal ligation Family History: Patient reports no known family medical history. Family History Noncontributory Social History Denies alcohol, tobacco, IV drug use Allergies: Coded Allergies: NO KNOWN ALLERGIES (Unverified , 02/08/25) Current Medications Current Medications Medications (Trade) Dose Ordered Sig/Clifford Route PRN Reason Start Time Stop Time Status Last Admin Acetaminophen (Tylenol Tablet) 650 mg Q6HP PRN PO PAIN SCALE 1-3 OR TEMP>100.4 02/08/25 05:00 Ondansetron HCl (Zofran) 4 mg Q4HP PRN IV NAUSEA / VOMITING 02/08/25 05:00 Morphine Sulfate 2 mg Q4HPRN PRN IV SEVERE PAIN (7-10 PAIN SCALE) 02/08/25 05:00 Enoxaparin Sodium (Lovenox) 40 mg DAILY SC 02/08/25 10:00 Sodium Chloride 1,000 ml @ 100 mls/hr Q10H IV 02/08/25 05:00 02/08/25 06:00 Pantoprazole Sodium (Protonix) 40 mg DAILY IV 02/08/25 10:00 02/08/25 11:16 Metronidazole 100 ml @ 100 mls/hr Q8HR IV 02/08/25 14:00 Ceftriaxone Sodium 50 ml @ 100 mls/hr DAILY@09 IV 02/09/25 09:00 Lorazepam (Ativan Inj) 1 mg ONCE PRN IV MRI 02/08/25 11:00 Vital Signs Vital Signs Date Time Temp Pulse Resp B/P (MAP) Pulse Ox O2 Delivery O2 Flow Rate FiO2 02/08/25 12:58 98.1 97 16 111/67 (82) 97 98.1 02/08/25 08:00 Room Air* 0 21 Physical Exam GEN: Age-appropriate female in no acute distress. Alert. HEENT: Normocephalic atraumatic. Moist mucous membranes. Anicteric sclerae. CV: RRR Respiratory: CTAB ABD: Minimal epigastric and right upper quadrant tenderness to palpation with minimal guarding. Nondistended. Slightly obese. Abdominal ultrasound: Cholelithiasis. Common bile duct and 0.[address] of the abdomen and pelvis: Unremarkable Labs/Diagnostic Data Labs Test 02/08/25 08:31 02/08/25 05:20 02/08/25 04:20 02/08/25 02:57 Range/Units White Blood Count 9.2 # 4.4-10.8 10^3/uL Red Blood Count 4.60 4.0-5.20 10^6/uL Hemoglobin 11.4 L 12.2-16.2 g/dL Hematocrit 34.8 L 36.0-46.0 % Mean Corpuscular Volume 75.7 L 80.0-100.0 fL Mean Corpuscular Hemoglobin 24.9 L 28.0-32.0 pg Mean Corpuscular Hemoglobin Concent 32.8 32.0-36.0 g/dL Red Cell Distribution Width 16.5 H 11.8-14.3 % Platelet Count 367 140-450 10^3/uL Mean Platelet Volume 8.0 6.9-10.8 fL Neutrophils (%) (Auto) 76.0 37.0-80.0 % Lymphocytes (%) (Auto) 18.9 10.0-50.0 % Monocytes (%) (Auto) 4.6 0.0-12.0 % Eosinophils (%) (Auto) 0.2 0.0-7.0 % Basophils (%) (Auto) 0.3 0.0-2.0 % Neutrophils # (Auto) 7.0 1.6-8.6 10 ^3/uL Lymphocytes # (Auto) 1.7 0.4-5.4 10 ^3/uL Monocytes # (Auto) 0.4 0-1.3 10 ^3/uL Eosinophils # (Auto) 0 0-0.8 10 ^3/uL Basophils # (Auto) 0 0-0.2 10 ^3/uL Nucleated Red Blood Cells 0.1 % Sodium Level 140 136-145 mmol/L Potassium Level 4.4 3.5-5.1 mmol/L Chloride Level 110 H 98-107 mmol/L Carbon Dioxide Level 25 20-31 mmol/L Anion Gap 5 5-15 Blood Urea Nitrogen 9 9-23 mg/dL Creatinine 0.66 0.550-1.02 mg/dL Glomerular Filtration Rate Calc 118 >90 mL/min BUN/Creatinine Ratio 13.6 10.0-20.0 Serum Glucose 90 74-106 mg/dL Calcium Level 9.1 8.7-10.4 mg/dL Magnesium Level 2.0 1.6-2.6 mg/dL Total Bilirubin 0.3 0.2-1.0 mg/dL Aspartate Amino Transferase (AST) 378 H 13-40 U/L Alanine Aminotransferase (ALT) 285 H 7-40 U/L Alkaline Phosphatase 83 46-116 U/L Total Protein 7.3 5.7-8.2 g/dL Albumin 3.9 3.2-4.8 g/dL Ammonia 36 H 11-32 umol/L Urine Color Light-yellow Yellow Urine Clarity Clear Clear Urine pH 8.0 5.0-9.0 Urine Specific [place] > 1.050 H 1.001-1.035 Urine Protein Trace H Negative Urine Ketones Negative Negative Urine Blood 1+ H Negative /uL Urine Nitrite Negative Negative Urine Bilirubin Negative Negative Urine Urobilinogen Normal Negative mg/dL Urine Leukocyte Esterase Negative Negative /uL Urine RBC 4 0 - 4 /hpf Urine Microscopic WBC 2 0-5 /HPF Urine Squamous Epithelial Cells Few <5 /hpf Urine Bacteria Few H None Seen /hpf Urine Glucose Normal Normal mg/dL Urine Test Negative Negative Urine Opiates Screen Neg NEGATIVE Urine Fentanyl Screen Neg NEGATIVE Urine Barbiturates Screen Neg NEGATIVE Urine Phencyclidine Screen Neg NEGATIVE Urine Amphetamines Screen Neg NEGATIVE Urine Benzodiazepines Screen Neg NEGATIVE Urine Cocaine Screen Neg NEGATIVE Urine Cannabinoids Screen Neg NEGATIVE Prothrombin Time 10.3 9.3-11.8 sec Prothrombin Time INR 0.97 0.9-1.15 Activated Partial Thromboplast Time 24.2 L 24.5-34.5 SEC Hemoglobin A1c 5.0 <5.7 % A1C Lactic Acid Level 1.8 0.4-2.0 mmol/L Phosphorus Level 4.1 2.4-5.1 mg/dL Triglycerides Level 103 < 150 mg/dL Cholesterol Level 160 < 200 mg/dL LDL Cholesterol 105 H < 100 mg/dL HDL Cholesterol 46 40-59 mg/dL Lipase 306 H 12-53 U/L Vitamin B12 Level 612 211-911 pg/mL Vitamin D 25-Hydroxy 28.6 L 30.0-100 ng/mL Thyroid Stimulating Hormone (TSH) 1.38 0.55-4.78 uIU/mL Plasma/Serum Blood Alcohol 3.4 <10 mg/dL Hepatitis A IgM Antibody Negative Hepatitis B Surface Antigen Negative Negative Hepatitis B Surface Antibody Positive H Negative Hepatitis B Core IgM Antibody Negative Negative Hepatitis C Antibody Negative Negative Assessment 1. Cholecystitis Plan/Recommendation 1. Laparoscopic cholecystectomy possible open surgery. Informed consent: The surgery and its risks including but not limited to infection, bleeding requiring possible blood transfusion with the risk of hepatitis or HIV infection, possible open surgery, possible cystic duct leak or retained common bile duct stone requiring further intervention such as an ERCP, possible perioperative AK or stroke were explained to the patient. All questions were answered to her satisfaction. She expressed verbal understanding and wished to proceed with the surgery. Plan discussed with: Patient KENYA CASTRO MD Feb 08, 2025 13:53
[2025-02-08] MEDS ORDERED: fentaNYL CITRATE 100 MCG/2 ML VL ONE (13:54)
[2025-02-08] MEDS ORDERED: MIDAZOLAM HCL 2MG/2ML 2ml VIAL (1mg/ml) ONE (13:54)
[2025-02-08] MEDS: metroNIDAZOLE 500MG/100ML 100 ML IV SCH (14:30)
[2025-02-08] MEDS ORDERED: PROPOFOL 10 MG/ML 20 ML IV ONE (14:46)
[2025-02-08] MEDS ORDERED: DexAMETHasone SOD PHOS 10MG/1ML VIAL INJ ONE (14:46)
[2025-02-08] MEDS ORDERED: ROCURONIUM 10MG/ML 10ML VIAL IV ONE (14:47)
[2025-02-08] MEDS ORDERED: ONDANSETRON HCL 4 MG/2 ML VIAL ONE (14:47)
[2025-02-08] MEDS ORDERED: MIDAZOLAM HCL 2MG/2ML 2ml VIAL (1mg/ml) IV PRN (15:15)
[2025-02-08] MEDS ORDERED: ePHEDrine SULFATE 50 MG/ML AMP IV PRN (15:15)
[2025-02-08] MEDS ORDERED: MORPHINE SULFATE 4 MG/ML SYR/VIAL IV PRN (15:15)
[2025-02-08] MEDS ORDERED: HYDROmorphone HCL 2 MG/ML VL/or syr IV PRN (15:15)
[2025-02-08] MEDS ORDERED: ONDANSETRON HCL 4 MG/2 ML VIAL IV ONE (15:15)
[2025-02-08] MEDS ORDERED: hydrALAZINE HCL 20 MG/ML VL IV PRN (15:15)
[2025-02-08] MEDS ORDERED: SUGAMMADEX 200mg/2ml Vial (100MG/ML) IV ONE (15:17)
[2025-02-08] MEDS: Lidocaine/Epinephrine 1%-1:100,000 30ML VL ONE (15:20)
[2025-02-08] MEDS ORDERED: KETOROLAC TROMETH 30 MG/ML 1ML VIAL ONE (15:21)
--- NOTE | 2025-02-08 15:28 | DVHOP2 ---
Operative Report - 2 Report Details Date: 02/08/25 Preop Diagnosis: 1. Cholecystitis Postop Diagnosis: 1. Same Surgeon: Kenya Marques MD Pattern Cutter: None Anesthesiologist: Dr. Caballero Anesthesia: General, Local Drains: None Consent: The surgery and its risks including but not limited to infection, bleeding requiring possible blood transfusion with the risk of hepatitis or HIV infection, possible open surgery, possible cystic duct leak or retained common bile duct stone requiring further intervention such as an ERCP, possible perioperative PR or stroke were explained to the patient. All questions were answered to her satisfaction. She expressed verbal understanding and wished to proceed with the surgery. Complications: None Estimated Blood Loss: 50 mL Fluids: 1200 mL Name of Procedure Performed Laparoscopic cholecystectomy Procedure Details Procedure Details: After induction of general anesthesia, patient's abdomen was prepped and draped in standard surgical fashion. A small infraumbilical incision was made and this incision was taken through the abdominal wall down to the fascia which was opened sharply. Peritoneum was then bluntly divided gaining access to the intra-abdominal cavity. Interrupted 0 Vicryl sutures were placed through the fascial incision and using an open technique, Candelario trocar was introduced and secured using the Vicryl sutures. Abdomen was insufflated to 15 mmHg and camera was inserted. Visual examination of the intestine under the fascial incision appeared normal without injury. Under direct visualization, a 5 mm bladeless trocar was placed in the subxiphoid region and two additional 5 mm bladeless trocars were placed in the right upper quadrant all under direct visualization. Examination of the right upper quadrant revealed a very distended and slightly edematous gallbladder. Gallbladder was then grasped and retracted in a cephalad direction as the infundibulum was retracted laterally. Careful blunt dissection was performed to identify the cystic duct which appeared normal in size. This was clipped and divided using Endoclips without complication. The cystic artery was located just next to the cystic duct and this was also clipped and divided using Endoclips without complication. Gallbladder was then removed from the liver bed using electrocautery. There was no bile or stone spillage during the maneuver. Gallbladder was then removed from the abdominal cavity using an endo pouch bag and sent off the surgical field. Abdomen was then re-insufflated and hemostasis in the liver bed was achieved using electrocautery. Right upper quadrant was then well irrigated until fluid was clear. Diamante powder was sprayed onto the gallbladder fossa for additional hemostasis. Trocars were then removed under direct visualization as the abdomen was deflated. Additional interrupted 0 Vicryl sutures were placed through the infraumbilical fascial incision and the sutures were tied down closing off the infraumbilical fascia. Surgical sites were irrigated injected with 20 mL of 1% lidocaine with epinephrine. Skin incisions were closed using 4-0 Monocryl sutures in subcuticular fashion. Surgical sites were cleaned and dried and dressings were applied. Sponge, needle, instrument count at the end of the case were reported to be correct by the nursing staff. The patient tolerated procedure well and at the time of the dictation, she is being awakened from general anesthesia. Specimen: Gallbladder Condition Stable Disposition Still a Patient KENYA MARQUES MD Feb 08, 2025 15:28
--- NOTE | 2025-02-08 15:56 | DVHPNRES ---
Progress Note Date Seen: Feb 08, 2025 Resident Creating Document: NADINE LEE RESIDENT Medical Necessity Reason Pt with a Central, PICC or Fol: No Subjective Review of Systems HPI-patient is a 34-year-old female patient who presents to the ED with chief complaint of epigastric abdominal pain which radiates towards right upper quadrant and towards back, intensity 10/10 which lasted approximately 1 hour associated with nausea and vomiting, followed by episodes of loss of consciousness which lasted approximately 1 hour, she was foggy and confused and presented bilateral arm tremors and diaphoresis. Per patient these symptoms have been happening for the past two months, she had a total of three episodes but never consulted until today after calling the EMS. Denies palpitation, chest pain, dyspnea, diarrhea, constipation, dysuria, bleeding, recent travel, sick contacts, triggering factors, unintentional weight loss and motor or sensory deficits. Initial lab workup revealed leukocytosis WBC 13.2, hemoglobin 11.2, MCV 75.8, RDW 15.7, AST 78, ALT 285, ammonia 36, lipase 306, UDS negative, alcohol 3.4, urinalysis negative for UTI. CT scan no acute intra-abdominal abnormality as per report, CT head negative, syncopal ultrasound revealed- Hepatic steatosis. Cholelithiasis. CXR no acute cardiopulmonary abnormality. MRI of the brain- 1. No evidence of acute infarction, intracranial hemorrhage, mass effect or hydrocephalus. 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 Clinical correlation and continued follow- up is recommended. Severe pansinusitis. 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 control consist of vasectomy in her and bilateral fallopian tube resection. Last menstrual period was on February 01, 2025, she just finished her period, her cycles normally last 28 days. Family history: Denies Social history: Lives with family in [place] ( is next of kin). Denies current tobacco, alcohol and other drug abuse Allergies: Denies Home medication: Denies Patient was seen today at the bedside. Cardiovascular- deny acute chest pain or shortness of breath or cough or palpitation Respiratory denies cough or short of breath or wheezing Musculoskeletal-denies acute joint swelling or tenderness or redness Neurological- denies acute dysarthria, dysphagia, change in vision Psychiatry- denies depression or SI or HI Skin- denies acute rash or purpura Patient was seen today for clinical evaluation. Labs and chart reviewed. Patient reported ongoing pain which has improved the with the pain medication. Patient had gastroenterology consult, recommendation reviewed and appreciated. Patient also had surgery consultation, recommendation reviewed and appreciated. Patient's laparoscopic cholecystectomy today. Objective vital signs Vital Sign Date Time Temp Pulse Resp B/P (MAP) Pulse Ox O2 Delivery O2 Flow Rate FiO2 02/08/25 13:50 107 02/08/25 12:58 98.1 18 111/67 (82) 97 98.1 02/08/25 08:00 Room Air* 0 21 Total Intake and Output 02/07/25 02/07/25 02/08/25 15:00 23:00 07:00 Intake Total 100 ml Balance 100 ml medications Current Medications Medications Dose Ordered Sig/Clifford Route Start Time Stop Time Status Last Admin Dose Admin Acetaminophen 650 mg Q6HP PRN PO 02/08/25 05:00 Ondansetron HCl 4 mg Q4HP PRN IV 02/08/25 05:00 Morphine Sulfate 2 mg Q4HPRN PRN IV 02/08/25 05:00 Pantoprazole Sodium 40 mg DAILY IV 02/08/25 10:00 02/08/25 11:16 40 MG Metronidazole 100 ml @ 100 mls/hr Q8HR IV 02/08/25 14:00 Ceftriaxone Sodium 50 ml @ 100 mls/hr DAILY@09 IV 02/09/25 09:00 Lorazepam 1 mg ONCE PRN IV 02/08/25 11:00 Hydralazine HCl 5 mg Q10M PRN IV 02/08/25 15:15 02/08/25 16:06 Midazolam HCl 1 mg Q10M PRN IV 02/08/25 15:15 02/08/25 15:56 Ephedrine Sulfate 10 mg Q10M PRN IV 02/08/25 15:15 02/08/25 15:56 Hydromorphone HCl 0.5 mg Q10M PRN IV 02/08/25 15:15 02/08/25 15:56 Sodium Chloride 1,000 ml @ 70 mls/hr [id number] IV 02/08/25 15:30 UNV Examination General examination- awake, alert, oriented HEENT- PEERLA, no acute nasal discharge Cardiovascular- S1-S2 audible, rate and rhythm regular, no murmur Respiratory- CTAB, no wheeze or rhonchi Gastrointestinal-epigastric and right upper abdominal tenderness positive, bowel sound+. Nondistended Musculoskeletal-no acute joint swelling or tenderness or redness Lower extremity- for leg edema Neurological- cranial nerves intact, no acute dysarthria or dysphagia Psychiatry- denies depression or SI or HI Skin- no acute rash or purpura laboratory and microbiology Laboratory Tests 02/08/25 08:31 Test 02/08/25 08:31 Range/Units Serum Glucose 90 74-106 mg/dL Problem List/Assessment/Plan Problem List/Assessment/Plan Assessment and plan Sepsis probably secondary to pancreatitis versus cholecystitis Pancreatitis Symptomatic cholelithiasis Transaminitis Hepatic steatosis Ruled out UTI Rule out syncope versus seizure disorder Sinusitis Episodic amnesia along with intense abdominal pain, etiology unclear ? Partial complex seizure CT scan no acute intra-abdominal abnormality as per report, CT head negative, syncopal ultrasound revealed-Hepatic steatosis. Cholelithiasis. CXR no acute cardiopulmonary abnormality. MRI of the brain- 1. No evidence of acute infarction, intracranial hemorrhage, mass effect or hydrocephalus. 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 Clinical correlation and continued follow- up is recommended. Severe pansinusitis. Plan: Status post cholecystectomy. Continue IV antibiotic (ceftriaxone and metronidazole). Continue pantoprazole Continue Lovenox as prescribed Continue other medication as prescribed Status post neurology consult Status post gastroenterology consult Status post surgery consult Goals of care, Code status ; discussed with >15 minutes PUD prophylaxis: Pantoprazole DVT prophylaxis: Lovenox Plan discussed with Dr. Lowry , nursing staff, Total time spent on patient evaluation, chart review, assessment and plan, discussion discussion >35 minutes Plan discussed with: Patient, Daughter (RN), Other My Orders My Orders Orders - NADINE LEE Procedure Category Date Status Time Chest Xray 1 View XY 02/08/25 Resulted 08:19 * Surgical Consult CONS 02/08/25 Transmitted 13:54 Date of Service: Feb 08, 2025 Billing Provider: MAINOR PENDLETON MD Common Visit Codes: [id number] INP/OBS CARE(HIGH) NADINE LEE Feb 08, 2025 15:56 MAINOR PENDLETON MD February 11, 2025 20:38
[2025-02-08] MEDS: BUPIVACAINE 0.25% INJ 50ML VIAL ONE (16:10)
[2025-02-08] MEDS: ACETAMINOPHEN 325 MG TAB PO PRN (21:49)
[2025-02-09] VITALS (7 sets, daily range): BP systolic 99–122; BP diastolic 66–80; PULSE 62–80; RESP 16–20; TEMP 98.1–98.3; O2SAT 97–98
[2025-02-09 07:50] LABS: Basophils # (auto) 0 10 ^3/uL (0-0.2); Eosinophils # (auto) 0 10 ^3/uL (0-0.8); Hemoglobin 10.5 g/dL (12.2-16.2); Lymphocytes # (auto) 1.4 10 ^3/uL (0.4-5.4); Monocytes # (auto) 0.6 10 ^3/uL (0-1.3); Neutrophils % (auto) 82.5 % (37.0-80.0)
[2025-02-09 07:54] LABS: Basophils % (auto) 0.2 % (0.0-2.0); Hematocrit 31.3 % (36.0-46.0); Lymphocytes % (auto) 11.9 % (10.0-50.0); Mean Corpuscular Hemoglobin 25.3 pg (28.0-32.0); Mean Corpuscular Hgb Conc. 33.4 g/dL (32.0-36.0); Mean Corpuscular Volume 75.7 fL (80.0-100.0); Monocytes % (auto) 5.4 % (0.0-12.0); Neutrophils # (auto) 9.4 10 ^3/uL (1.6-8.6); Platelet Count (auto) 317 10^3/uL (140-450); Red Blood Cells 4.14 10^6/uL (4.0-5.20); Red Cell Distribution Width 15.7 % (11.8-14.3); White Blood Cell 11.4 10^3/uL (4.4-10.8)
[2025-02-09 08:16] LABS: Albumin 3.8 g/dL (3.2-4.8); Alkaline Phosphatase 68 U/L (46-116); Anion Gap 9 (5-15); BUN/Creatinine Ratio 13.1 (10.0-20.0); Carbon Dioxide 21 mmol/L (20-31); Glucose 95 mg/dL (74-106); Magnesium 1.9 mg/dL (1.6-2.6); Potassium 3.9 mmol/L (3.5-5.1); Sodium 139 mmol/L (136-145); Total Protein 6.9 g/dL (5.7-8.2)
[2025-02-09 08:17] LABS: Alanine Aminotransferase 193 U/L (7-40); Aspartate Aminotransferase 98 U/L (13-40); Bilirubin, Total 0.3 mg/dL (0.2-1.0); Blood Urea Nitrogen 8 mg/dL (9-23); Chloride 109 mmol/L (98-107)
[2025-02-09] MEDS: cefTRIAXone 1GM/50ML D5W 50 ML IV SCH (10:45)
[2025-02-09] MEDS: ENOXAPARIN SOD 40 MG/0.4 ML SYRINGE SC SCH (10:45)
--- NOTE | 2025-02-09 11:13 | DVHPN2 ---
Progress Note Date Seen: February 09, 2025 Resident Creating Document: ROGELIO CARVALHO RESIDENT Medical Necessity Reason Pt with a Central, PICC or Fol: No Subjective Review of Systems Patient seen and examined at the bedside. Patient reported mild pain in the abdominal surgical site. Status post laparoscopic cholecystectomy. Currently on clear liquid diet advance as tolerated. Patient reports: No new complaints, Feels better Objective vital signs Vital Sign Date Time Temp Pulse Resp B/P (MAP) Pulse Ox O2 Delivery O2 Flow Rate FiO2 02/09/25 09:00 98.3 72 17 109/68 (82) 97 98.3 02/09/25 08:00 Room Air* 0 21 Total Intake and Output 02/08/25 02/08/25 02/09/25 14:59 22:59 06:59 Intake Total 775 ml 1200 ml 500 ml Balance 775 ml 1200 ml 500 ml medications Current Medications Medications Dose Ordered Sig/Clifford Route Start Time Stop Time Status Last Admin Dose Admin Acetaminophen 650 mg Q6HP PRN PO 02/08/25 05:00 02/09/25 05:00 650 MG Ondansetron HCl 4 mg Q4HP PRN IV 02/08/25 05:00 Morphine Sulfate 2 mg Q4HPRN PRN IV 02/08/25 05:00 Pantoprazole Sodium 40 mg DAILY IV 02/08/25 10:00 02/09/25 10:44 40 MG Metronidazole 100 ml @ 100 mls/hr Q8HR IV 02/08/25 14:00 02/09/25 05:43 100 MLS/HR Ceftriaxone Sodium 50 ml @ 100 mls/hr DAILY@09 IV 02/09/25 09:00 02/09/25 10:45 100 MLS/HR Lorazepam 1 mg ONCE PRN IV 02/08/25 11:00 Enoxaparin Sodium 40 mg DAILY SC 02/09/25 10:00 02/09/25 10:45 40 MG Examination General examination- awake, alert, oriented HEENT- PEERLA, no acute nasal discharge Cardiovascular- S1-S2 audible, rate and rhythm regular, no murmur Respiratory- CTAB, no wheeze or rhonchi Gastrointestinal- laparoscopic surgical reddy present on the abdomen no signs of infection or inflammation Musculoskeletal-no acute joint swelling or tenderness or redness Lower extremity- for leg edema Neurological- cranial nerves intact, no acute dysarthria or dysphagia Psychiatry- denies depression or SI or HI Skin- no acute rash or purpura laboratory and microbiology Laboratory Tests 02/09/25 06:12 Test 02/09/25 06:12 Range/Units Serum Glucose 95 74-106 mg/dL Microbiology Date/Time Source Procedure Growth Status 02/08/25 05:20 Blood Blood Culture - Preliminary NO GROWTH AFTER 24 HOURS OF INCUBATION. Resulted Labs and/or images reviewed: Labs reviewed by me, Image(s) reviewed by me Problem List/Assessment/Plan Problem List/Assessment/Plan Abdominal pain Cholelithiasis possible cholecystitis Hepatic steatosis Transaminitis Plan: Monitor labs Status post laparoscopic cholecystectomy Diet as per surgical recommendation currently on clear liquid and advance if she tolerates. Rest of the management as per primary team Thank you so much for the opportunity to consult on your patient. GI team will follow the patient Case an action plan discussed with Dr. Deepti Teague. Complex care planning needed total 49 minutes of detailed discussion. Plan discussed with: Patient ROGELIO CARVALHO RESIDENT February 09, 2025 11:13
--- NOTE | 2025-02-09 11:15 | DVHDSRES ---
Discharge Summary Date of Admission Resident Creating Document: NADINE LEE RESIDENT Feb 08, 2025 at 05:31 Date of Discharge: February 09, 2025 Admitting Diagnosis Intractable abdominal pain likely due to acute pancreatitis secondary to cholelithiasis Labs/Diagnostic Data: Laboratory Results Test 02/09/25 06:12 02/08/25 05:20 02/08/25 04:20 02/08/25 02:57 White Blood Count 11.4 10^3/uL (4.4-10.8) Red Blood Count 4.14 10^6/uL (4.0-5.20) Hemoglobin 10.5 g/dL (12.2-16.2) Hematocrit 31.3 % (36.0-46.0) Mean Corpuscular Volume 75.7 fL (80.0-100.0) Mean Corpuscular Hemoglobin 25.3 pg (28.0-32.0) Mean Corpuscular Hemoglobin Concent 33.4 g/dL (32.0-36.0) Red Cell Distribution Width 15.7 % (11.8-14.3) Platelet Count 317 10^3/uL (140-450) Mean Platelet Volume 8.5 fL (6.9-10.8) Neutrophils (%) (Auto) 82.5 % (37.0-80.0) Lymphocytes (%) (Auto) 11.9 % (10.0-50.0) Monocytes (%) (Auto) 5.4 % (0.0-12.0) Eosinophils (%) (Auto) 0.0 % (0.0-7.0) Basophils (%) (Auto) 0.2 % (0.0-2.0) Neutrophils # (Auto) 9.4 10 ^3/uL (1.6-8.6) Lymphocytes # (Auto) 1.4 10 ^3/uL (0.4-5.4) Monocytes # (Auto) 0.6 10 ^3/uL (0-1.3) Eosinophils # (Auto) 0 10 ^3/uL (0-0.8) Basophils # (Auto) 0 10 ^3/uL (0-0.2) Nucleated Red Blood Cells 0.0 % Sodium Level 139 mmol/L (136-145) Potassium Level 3.9 mmol/L (3.5-5.1) Chloride Level 109 mmol/L (98-107) Carbon Dioxide Level 21 mmol/L (20-31) Anion Gap 9 (5-15) Blood Urea Nitrogen 8 mg/dL (9-23) Creatinine 0.61 mg/dL (0.550-1.02) Glomerular Filtration Rate Calc 120 mL/min (>90) BUN/Creatinine Ratio 13.1 (10.0-20.0) Serum Glucose 95 mg/dL (74-106) Calcium Level 9.0 mg/dL (8.7-10.4) Magnesium Level 1.9 mg/dL (1.6-2.6) Total Bilirubin 0.3 mg/dL (0.2-1.0) Aspartate Amino Transferase (AST) 98 U/L (13-40) Alanine Aminotransferase (ALT) 193 U/L (7-40) Alkaline Phosphatase 68 U/L (46-116) Total Protein 6.9 g/dL (5.7-8.2) Albumin 3.8 g/dL (3.2-4.8) Ammonia 36 umol/L (11-32) Urine Color Light-yellow (Yellow) Urine Clarity Clear (Clear) Urine pH 8.0 (5.0-9.0) Urine Specific [place] > 1.050 (1.001-1.035) Urine Protein Trace (Negative) Urine Ketones Negative (Negative) Urine Blood 1+ /uL (Negative) Urine Nitrite Negative (Negative) Urine Bilirubin Negative (Negative) Urine Urobilinogen Normal mg/dL (Negative) Urine Leukocyte Esterase Negative /uL (Negative) Urine RBC 4 /hpf (0 - 4) Urine Microscopic WBC 2 /HPF (0-5) Urine Squamous Epithelial Cells Few /hpf (<5) Urine Bacteria Few /hpf (None Seen) Urine Glucose Normal mg/dL (Normal) Urine Test Negative (Negative) Urine Opiates Screen Neg (NEGATIVE) Urine Fentanyl Screen Neg (NEGATIVE) Urine Barbiturates Screen Neg (NEGATIVE) Urine Phencyclidine Screen Neg (NEGATIVE) Urine Amphetamines Screen Neg (NEGATIVE) Urine Benzodiazepines Screen Neg (NEGATIVE) Urine Cocaine Screen Neg (NEGATIVE) Urine Cannabinoids Screen Neg (NEGATIVE) Prothrombin Time 10.3 sec (9.3-11.8) Prothrombin Time INR 0.97 (0.9-1.15) Activated Partial Thromboplast Time 24.2 SEC (24.5-34.5) Hemoglobin A1c 5.0 % A1C (<5.7) Lactic Acid Level 1.8 mmol/L (0.4-2.0) Phosphorus Level 4.1 mg/dL (2.4-5.1) Triglycerides Level 103 mg/dL (< 150) Cholesterol Level 160 mg/dL (< 200) LDL Cholesterol 105 mg/dL (< 100) HDL Cholesterol 46 mg/dL (40-59) Lipase 306 U/L (12-53) Vitamin B12 Level 612 pg/mL (211-911) Vitamin D 25-Hydroxy 28.6 ng/mL (30.0-100) Thyroid Stimulating Hormone (TSH) 1.38 uIU/mL (0.55-4.78) Plasma/Serum Blood Alcohol 3.4 mg/dL (<10) Hepatitis A IgM Antibody Negative Hepatitis B Surface Antigen Negative (Negative) Hepatitis B Surface Antibody Positive (Negative) Hepatitis B Core IgM Antibody Negative (Negative) Hepatitis C Antibody Negative (Negative) Other Laboratory Tests 02/09/25 06:12 Brief Hx & Hospital Course: HPI-patient is a 34-year-old female patient who presents to the ED with chief complaint of epigastric abdominal pain which radiates towards right upper quadrant and towards back, intensity 10/10 which lasted approximately 1 hour associated with nausea and vomiting, followed by episodes of loss of consciousness which lasted approximately 1 hour, she was foggy and confused and presented bilateral arm tremors and diaphoresis. Per patient these symptoms have been happening for the past two months, she had a total of three episodes but never consulted until today after calling the EMS. Denies palpitation, chest pain, dyspnea, diarrhea, constipation, dysuria, bleeding, recent travel, sick contacts, triggering factors, unintentional weight loss and motor or sensory deficits. Initial lab workup revealed leukocytosis WBC 13.2, hemoglobin 11.2, MCV 75.8, RDW 15.7, AST 78, ALT 285, ammonia 36, lipase 306, UDS negative, alcohol 3.4, urinalysis negative for UTI. CT scan no acute intra-abdominal abnormality as per report, CT head negative, syncopal ultrasound revealed- Hepatic steatosis. Cholelithiasis. CXR no acute cardiopulmonary abnormality. MRI of the brain- 1. No evidence of acute infarction, intracranial hemorrhage, mass effect or hydrocephalus. 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 Clinical correlation and continued follow- up is recommended. Severe pansinusitis. HPI-patient is a 34-year-old female patient who presents to the ED with chief complaint of epigastric abdominal pain which radiates towards right upper quadrant and towards back, intensity 10/10 which lasted approximately 1 hour associated with nausea and vomiting, followed by episodes of loss of consciousness which lasted approximately 1 hour, she was foggy and confused and presented bilateral arm tremors and diaphoresis. Per patient these symptoms have been happening for the past two months, she had a total of three episodes but never consulted until today after calling the EMS. Denies palpitation, chest pain, dyspnea, diarrhea, constipation, dysuria, bleeding, recent travel, sick contacts, triggering factors, unintentional weight loss and motor or sensory deficits. Initial lab workup revealed leukocytosis WBC 13.2, hemoglobin 11.2, MCV 75.8, RDW 15.7, AST 78, ALT 285, ammonia 36, lipase 306, UDS negative, alcohol 3.4, urinalysis negative for UTI. CT scan no acute intra-abdominal abnormality as per report, CT head negative, syncopal ultrasound revealed- Hepatic steatosis. Cholelithiasis. CXR no acute cardiopulmonary abnormality. MRI of the brain- 1. No evidence of acute infarction, intracranial hemorrhage, mass effect or hydrocephalus. 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 Clinical correlation and continued follow- up is recommended. Severe pansinusitis. . Patient had gastroenterology consult, recommendation reviewed and appreciated. Patient had laparoscopic cholecystectomy today. Post admission day 1 patient had good bowel sound and tolerated diet well. Patient is being discharged with Augmentin, Flagyl, ibuprofen, pantoprazole. Patient's meds were sent to the pharmacy electronically. Patient was advised to follow up with the primary care physician in 1 week and to follow up with the surgeon in 1-2 weeks. Patient was hemodynamically stable on discharge Assessment Sepsis probably secondary to gallbladder pancreatitis Gallbladder Pancreatitis Symptomatic cholelithiasis Transaminitis Hepatic steatosis Ruled out UTI Rule out syncope versus seizure disorder Sinusitis Episodic amnesia along with intense abdominal pain, etiology unclear Suspected Partial complex seizure Plan Augmentin 875 mg p.o. b.i.d. for 7 days Flagyl 500 mg t.i.d. for 7 days Ibuprofen 400 mg q.6h PRN with a meal Pantoprazole 40 mg daily for 21 days Please follow up with the primary care physician in 1 week Please follow up with the surgeon in 1-2 weeks as per recommendation Please follow up with the neurologist for further evaluation of suspected patient's seizure. Please continue medication as prescribed Avoid dehydration Avoid fatty diet Operations or Procedures [address] [address] Ph: [phone] DIAGNOSTIC IMAGING Diagnostic Imaging Report : [id number] Signed PATIENT: COLT HILL ACCT: [id number] UNIT: [id number] : 1990 LOC: ER ROOM / BED: / AGE / SEX: 34 / F ADM STATUS: REG ER SERVICE 0250 ORDERING PHYSICIAN: ALEXA FLORES MD PROCEDURE(s): ABPLIV - CT AB PEL WITH IV CON ONLY REASON: RUQ abdominal pain ORDER NUMBER(s): [id number], ACCESSION NUMBER(s): [id number] Exam: CT CT AB PEL WITH IV CON ONLY History: RUQ abdominal pain Comparison Study: None available at time of dictation. TECHNIQUE: Multidetector CT of the abdomen and pelvis was performed from lung bases to ischial tuberosities. Imaging was performed without IV contrast using axial images. Coronal and sagittal reformats were obtained from the axial data set by the technologist. Radiation Dose Information: CT Dose: CTDI volume is 21.5 mGy. Dose-length product is 1387.6 mGy*cm FINDINGS: Evaluation of solid organs is limited due to lack of intravenous contrast use. Findings: Lung Bases: No acute or significant lung base finding. Normal heart size. No pleural or pericardial effusion. Liver: The liver is normal in size. No focal lesions. Gallbladder and Biliary Tree: Unremarkable Spleen: Unremarkable Pancreas: The pancreas is grossly normal in appearance. Adrenal Glands: Unremarkable Kidneys: Kidneys are grossly normal without calculi or hydronephrosis. GI Tract: The stomach is grossly normal in appearance. Small bowel and colon are normal in caliber and distribution. The appendix is not visualized; however, no secondary findings of acute appendicitis identified. Peritoneal cavity: No pneumoperitoneum. No ascites. Lymphadenopathy: No mesenteric, retroperitoneal or periportal lymphadenopathy. Abdominal Wall and Mesentery: Unremarkable. Vasculature: The visualized abdominal aorta is normal in size and caliber. Evaluation of abdominal and pelvic vessels is limited due to lack of intravenous contrast. Pelvic Organs: Unremarkable Urinary Bladder: Grossly unremarkable for degree of distention. Musculoskeletal: No aggressive focal bony lesions, acute fractures or dislocation. Soft tissues: Unremarkable IMPRESSION: 1. No acute abdominal or pelvic finding. Radiation optimization: All CT scans at this facility use at least one of these dose optimization techniques: automated exposure control mA and/or kV adjustment per patient size (includes targeted exams where dose is matched to clinical indication) or iterative reconstruction. ATED BY: JOCELYN ALMANZAR MD DICTATED DATE/TIME: 02/08/25417 SIGNED BY: JOCELYN ALMANZAR MD SIGNED DATE/TIME: 02/08/25417 CC: [place] [address] Ph: [phone] DIAGNOSTIC IMAGING Diagnostic Imaging Report : [id number] Signed PATIENT: COLT HILL ACCT: [id number] UNIT: [id number] : 1990 LOC: OVERFLOW ROOM / BED: [address] [place] [address] AGE / SEX: 34 / F ADM STATUS: ADM IN SERVICE 7 ORDERING PHYSICIAN: PAM GAN RESIDENT PROCEDURE(s): CARCL - CAROTID DUPLX W COLOR DOP REASON: Loss of consciousness ORDER NUMBER(s): [id number], ACCESSION NUMBER(s): [id number] Carotid Duplex Date: 02/08/2025 07:41 AM Clinical History: Loss of consciousness Comparison: None Technique: Duplex Doppler evaluation of the extracranial carotid and vertebral arteries including color Doppler and spectral/pulsed waveform analysis was performed. Findings: RIGHT SIDE: The peak systolic velocities are 95 cm/s in the distal CCA and 87 cm/s in the proximal ICA.The ICA/CCA ratio is 0.9. The external carotid artery is patent with peak systolic velocity of 89 cm/s proximally. There is appropriate antegrade flow in the right vertebral artery. LEFT SIDE: The peak systolic velocities are 101 cm/s in the distal CCA and 55cm/s in the proximal ICA. The ICA/CCA ratio is 0.5. The external carotid artery is patent with peak systolic velocity of 89 cm/s proximally. There is appropriate antegrade flow in the left vertebral artery. IMPRESSION: No hemodynamically significant stenosis noted in the right carotid system. No hemodynamically significant stenosis noted in the left carotid system. Reference: Radiology 2003; 229:[id number] ATED BY: ARNAUD DARNELL MD DICTATED DATE/TIME: 02/08/25856 SIGNED BY: ARNAUD DARNELL MD SIGNED DATE/TIME: 02/08/25856 CC: [place] [address] Ph: [phone] DIAGNOSTIC IMAGING Diagnostic Imaging Report : [id number] Signed PATIENT: COLT HILL ACCT: [id number] UNIT: [id number] : 1990 LOC: OVERFLOW ROOM / BED: [address] [place] [address] A AGE / SEX: 34 / F ADM STATUS: ADM IN SERVICE 7 ORDERING PHYSICIAN: PAM GAN RESIDENT PROCEDURE(s): HWOCT - HEAD WITHOUT CONTRAST REASON: Questionable seizures ORDER NUMBER(s): [id number], ACCESSION NUMBER(s): [id number] EXAM: CT HEAD WITHOUT CONTRAST INDICATION: Questionable seizures TECHNIQUE: CT of the head without intravenous contrast. Coronal and sagittal reformatted images are submitted. Radiation Dose : 1. Head: CT Dose: CTDI volume is 57.22 mGy. Dose-length product is 802.73 mGy*cm The dose indicators for CT are the volume Computed Tomography (CT) Dose Index (CTDIvol) and the Dose Length Product (DLP), and are measured in units of mGy and mGy-cm, respectively. These indicators are not patient dose, but values generated from the CT scanner acquisition factors. The report includes radiation exposure data for exposures received during this examination. All CT scans at this medical facility are performed using dose modulation techniques as appropriate to a performed exam including the following: Automated exposure control was utilized; adjustment of the MA and/or KV according to patient size; and use of iterative reconstruction technique. COMPARISON: None FINDINGS: There is no evidence of acute intracranial hemorrhage, extra-axial collection, mass effect, midline shift, herniation or hydrocephalus. The ventricles, sulci and cisterns are age appropriate. The rene-white differentiation is intact. Opacification of the ethmoid air cells. Mastoid air cells are clear. No depressed calvarial fracture. The surrounding soft tissues are unremarkable. IMPRESSION: 1. No acute intracranial abnormality. ATED BY: JOCELYN ALMANZAR MD DICTATED DATE/TIME: 02/08/25611 SIGNED BY: JOCELYN ALMANZAR MD SIGNED DATE/TIME: 02/08/25611 CC: [place] [address] Ph: [phone] DIAGNOSTIC IMAGING Diagnostic Imaging Report : [id number] Signed PATIENT: COLT HILL ACCT: [id number] UNIT: [id number] : 1990 LOC: OVERFLOW ROOM / BED: [address] [place] [address] AGE / SEX: 34 / F ADM STATUS: ADM IN SERVICE 7 ORDERING PHYSICIAN: PAM GAN RESIDENT PROCEDURE(s): ABDL - ABDOMEN LIMITED REASON: Rule out cholecystitis ORDER NUMBER(s): [id number], ACCESSION NUMBER(s): [id number] INDICATION: Rule out cholecystitis TECHNIQUE: Multiple real-time sonographic images of the abdomen were obtained. COMPARISON: None FINDINGS: The liver is heterogenous in echogenicity. The liver measures 16cm. No intrahepatic biliary ductal dilatation is noted. The gallbladder wall measures 0.3 cm and is unremarkable. Gallstones are noted. The common duct measures 0.6 cm and is unremarkable. No pericholecystic fluid is noted. The right kidney measures 12cm. No hydronephrosis. The pancreas is not well visualized due to obscuration from bowel gas. The visualized portions of the IVC and aorta are grossly unremarkable. IMPRESSION: Hepatic steatosis. Cholelithiasis. ATED BY: ARNAUD DARNELL MD DICTATED DATE/TIME: 02/08/25854 SIGNED BY: ARNAUD DARNELL MD SIGNED DATE/TIME: 02/08/25854 CC: [place] [address] Ph: [phone] DIAGNOSTIC IMAGING Diagnostic Imaging Report : [id number] Signed PATIENT: COLT HILL ACCT: [id number] UNIT: [id number] : 1990 LOC: OVERFLOW ROOM / BED: [address] [place] [address] AGE / SEX: 34 / F ADM STATUS: ADM IN SERVICE 8 ORDERING PHYSICIAN: NADINE LEE PROCEDURE(s): CXR1 - CHEST XRAY 1 VIEW REASON: ?PNA ORDER NUMBER(s): [id number], ACCESSION NUMBER(s): [id number] CHEST RADIOGRAPH Indication: PNA Technique: Single frontal view of the chest was obtained Comparison: None FINDINGS: Lines and Tubes: None Lungs: No focal consolidation. Pleura: No effusion. No pneumothorax. Cardiomediastinal contours: Unremarkable Bones: No acute osseous abnormality. IMPRESSION: No acute cardiopulmonary disease. ATED BY: ARNAUD DARNELL MD DICTATED DATE/TIME: 02/08/25904 SIGNED BY: ARNAUD DARNELL MD SIGNED DATE/TIME: 02/08/25904 CC: [address] [address] Ph: [phone] DIAGNOSTIC IMAGING Diagnostic Imaging Report : [id number] Signed PATIENT: COLT HILL ACCT: [id number] UNIT: [id number] : 1990 LOC: OVERFLOW ROOM / BED: [address] [place] [address] AGE / SEX: 34 / F ADM STATUS: ADM IN SERVICE 8 ORDERING PHYSICIAN: NADINE LEE PROCEDURE(s): CXR1 - CHEST XRAY 1 VIEW REASON: ?PNA ORDER NUMBER(s): [id number], ACCESSION NUMBER(s): [id number] CHEST RADIOGRAPH Indication: PNA Technique: Single frontal view of the chest was obtained Comparison: None FINDINGS: Lines and Tubes: None Lungs: No focal consolidation. Pleura: No effusion. No pneumothorax. Cardiomediastinal contours: Unremarkable Bones: No acute osseous abnormality. IMPRESSION: No acute cardiopulmonary disease. ATED BY: ARNAUD DARNELL MD DICTATED DATE/TIME: 02/08/25904 SIGNED BY: ARNAUD DARNELL MD SIGNED DATE/TIME: 02/08/25904 CC: Condition at Discharge: Stable Final Diagnosis/Problems List Sepsis probably secondary to pancreatitis versus cholecystitis Pancreatitis Symptomatic cholelithiasis Transaminitis Hepatic steatosis Ruled out UTI Rule out syncope versus seizure disorder Sinusitis Episodic amnesia along with intense abdominal pain, etiology unclear ? Partial complex seizure Discharge Disposition: Home Discharge Instruct/Medications Diet: Regular Follow Up/Referral: Please follow up with the primary care physician in 1 week Please follow up with the surgeon in 1-2 weeks as per recommendation Please continue medication as prescribed Please follow up with the neurologist for further evaluation of suspected patient's seizure. Avoid dehydration Avoid fatty diet Medications: Augmentin 875 mg p.o. b.i.d. for 7 days Flagyl 500 mg t.i.d. for 7 days Ibuprofen 400 mg q.6h PRN with a meal Pantoprazole 40 mg daily for 21 days Discharge Statement: "Patient was advised to return to the ER or call 911 if any headaches, dizziness, shortness of breath, chest pain, abdominal pain, bleeding, fevers, or worsening of medical condition. Patient was counseled about treatment plan, medications, possible side effects, patientverbalized understanding. All questions were answered to the best of my ability. This discharge took greater then 30 minutes in planning, reviewing documentation, counseling the patient, and discussing with other team members." ASSESSMENT ASSESSMENT Assessment 1. Same Date of Service: February 09, 2025 Billing Provider: MAINOR PENDLETON MD Common Visit Codes: 16783-ECD/OBS DISCH DAY >30min NADINE LEE RESIDENT February 09, 2025 11:15 MAINOR PENDLETON MD February 11, 2025 22:15
--- NOTE | 2025-02-09 16:24 | DVHSR ---
APPROVED REPORT EXAM: Two-dimensional and M-mode echocardiogram with Doppler and color Doppler. Blood Pressure: 106/59 mmHg INDICATION Loss of Consciousness RISK FACTORS Height: 5' 8", Weight: 160 DIMENSIONS LVDd4.5 (3.8-5.7cm)LA (2D)3.3 (1.9-4.0cm)Aortic Root2.9 (2.0-3.7cm) LVDs3.0 (2.5-4.0cm)LA (MM) (1.9-4.0cm)Aortic Cusp Exc1.5 (1.5-2.0cm) EF (%) 60.0 (55-70%)Rt. Atrium4.0 (1.9-4.0cm)Asc. Aorta cm IVSd0.8 (0.7-1.1cm)RV (D) (1.8-2.4cm) PWd0.9 (0.7-1.1cm) Mitral Valve MitralMitral Stenosis E wave0.90m/sMV Mean GR.mmHg A wave0.60m/sMV Peak GR.mmHg E/A ratio1.52D MVAcm2 Aortic Valve Aortic ValveAortic Stenosis V10.80m/Luis A Mean GR.3mmHg V21.20m/Luis A Peak GR.6mmHg LVOT Diameter2.0 (1.8-2.4cm)Doppler AVA2.09cm2 Pulmonic Valve V20.71m/s Tricuspid Valve TR Velocity2.07m/s [id number] Conclusion Sinus rhythm. Normal chambers. Valves are normal. Dopplers unremarkable. 60% ejection fraction with normal RV function. No pericardial effusion masses or vegetations.
[2025-02-09] MEDS ORDERED: PANT40T PO (17:42)
[2025-02-09] MEDS ORDERED: MET500T PO (17:42)
[2025-02-09] MEDS ORDERED: AUG875T PO (17:42)
[2025-02-09] MEDS ORDERED: IBUP-1454 PO (17:42)
--- NOTE | 2025-02-11 00:33 | DVHEEG2 ---
Neurology EEG Procedural Note Procedural Note EXAM DATE: 02/09/25 REFERRING DOCTOR: Dr. Butler TECHNIQUE: Eighteen channels of EEG, 2 channels of EOG, and 1 channel of EKG were recorded using the International 10/20 system. CLINICAL DATA: The patient was referred for an EEG evaluation for the evidence of seizure disorder. MEDICATIONS: See the chart BACKGROUND ACTIVITY: There was a lot of environmental artifacts in the recordin g, blocking the EEG ACTIVATION: Hyperventilation: Not done Photic Stimulation: Not done Sleep: Not seen IMPRESSION: This is an nondiagnostic EEG, please consider follow up EEG study if a seizure disorder is need to rule [place] [address]. JUDITH BUTLER MD February 11, 2025 00:32
== END 2025-02-09 20:00 | disposition home or self-care (01) | DRG 853 ==
LOC: ER 01:57 → EDBD 01:57 → OVERFLOW 05:31 → TELE-WESTW 13:04
PROVIDERS: ADMIT Student in an Organized Health Care Education/Training Program; ATTEND Student in an Organized Health Care Education/Training Program
PROC: 0FT44ZZ Resection of Gallbladder, Percutaneous Endoscopic Approach (ICD-10-PCS; principal; 2025-02-08 14:31)
DX: A41.9 Sepsis, unspecified organism (principal); K85.90 Acute pancreatitis without necrosis or infection, unspecified; K80.10 Calculus of gallbladder with chronic cholecystitis without obstruction; G40.209 Localization-related (focal) (partial) symptomatic epilepsy and epileptic syndromes with complex partial seizures, not intractable, without status epilepticus; J32.9 Chronic sinusitis, unspecified; K76.0 Fatty (change of) liver, not elsewhere classified; Z98.51 Tubal ligation status; Z79.899 Other long term (current) drug therapy; Z83.3 Family history of diabetes mellitus
CPT/HCPCS: 36415; 70450; 70551; 71045; 74177; 76705; 80053; 80061; 80074; 80307; 80320; 81001; 81025; 82140; 82306; 82607; 83036; 83605; 83690; 83735; 84100; 84443; 85025; 85610; 85730; 86706; 87040; 87086; 93306; 93886; 95819; 96361; 96365; 96367; 96375; 96376; 99291; G0378; J1100; J1885; J2250; J2405; J2470; J2704; J3490